=== PATIENT | female | born 1995 | race Caucasian/White ===

== ENCOUNTER 2019-10-20 12:49 | Outpatient (CLI) | payer OTHER, SELFPAY ==
--- NOTE | 2019-10-20 12:53 | ECG_ITS ---
Measurements Intervals [place] Rate: 81 P: 58 [place]: 177 QRS: 32 QRSD: 95 T: 52 QT: 363 QTc: 424 Interpretive Statements SINUS RHYTHM DELAYED PRECORDIAL R/S TRANSITION BORDERLINE ECG Electronically Signed On 10-20-2019 13:44:56 CDT by Vince Riley D.O.
[2019-10-20 13:17] LABS: Hematocrit 43.9 % (37.0-47.0); Hemoglobin 14.5 g/dL (12.0-15.0)
== END 2019-10-20 12:50 | disposition home or self-care (01) ==
LOC: ANHSURGERY 12:53
PROVIDERS: Anesthesiology; PCP Family Medicine; Visit Provider Surgery Plastic and Reconstructive Surgery
DX: Z41.1 Encounter for cosmetic surgery (principal); R94.31 Abnormal electrocardiogram [ECG] [EKG]
CPT/HCPCS: 36415; 85014; 85018; 93005

== ENCOUNTER 2019-10-27 01:04 | Outpatient (CLI) | payer OTHER, SELFPAY ==
[2019-10-27 19:25] LABS: SARS-CoV-2 RNA PCR Negative
== END 2019-10-27 01:05 | disposition home or self-care (01) ==
LOC: ANHCOVIDDT 01:04
PROVIDERS: PCP Family Medicine; Visit Provider Surgery Plastic and Reconstructive Surgery
DX: Z01.818 Encounter for other preprocedural examination (principal); Z11.59 Encounter for screening for other viral diseases
CPT/HCPCS: 87635; C9803; U0003

== ENCOUNTER 2019-10-29 01:32 | Day surgery (SDC) | payer OTHER, SELFPAY ==
[2019-10-16 09:41] VITALS: BMI 26.6
[2019-10-29] VITALS (15 sets, daily range): BP systolic 109–146; BP diastolic 52–87; PULSE 59–111; RESP 10–20; TEMP 36.4–36.9; O2SAT 96–100
[2019-10-29 08:28] LABS: Urine Cotinine NEGATIVE
--- NOTE | 2019-10-29 08:36 | WPDANESEPPF ---
Anes - Initial Pre Proc Eval Procedure: Operation Date: 10/29/19 10:00 Proposed Procedures p Abdominoplasty, - Kevin Lang MD s Abdominal Liposuction - Kevin Lang MD Date/Time: 10/29/19 08:36 Surgeon: Kevin Lang MD Pre Op Diagnosis: Skin Laxity Patient Data Age: 24 Gender: F Height: 1.68 m Weight: 74.84 kg Allergies Allergy/AdvReac Type Severity Reaction Status Date / Time lactose Allergy Unknown HIVES, GI Verified 10/16/19 09:42 UPSET Home Medications Medication Instructions Recorded Confirmed Type Collagen Powder 1 scoop/day PO DAILY 10/16/19 10/16/19 History Vitamin C 1 tablet PO DAILY 10/16/19 10/16/19 History carisoprodol 350 mg tablet 350 mg PO TID PRN #21 tablet 10/16/19 10/16/19 Rx cyanocobalamin (vitamin B-12) 1,000 mcg PO DAILY 10/16/19 10/16/19 History [Vitamin B-12] oxycodone-acetaminophen 5 mg-325 1 tablet PO Q6H PRN #15 tablet 10/16/19 10/16/19 Rx mg tablet Laboratory Tests 10/29/19 08:11 Cotinine Negative Patient hx anesthesia problems: none Family hx anesthesia problems: none PMFSH Past Medical History Medical History (Updated 10/29/19 @ 08:38 by Van Butler MD) Anxiety Depression Eczema Post traumatic stress disorder Social History Social History (System 10/13/19 @ 12:05 by Selin Martinez) Years smoked: 2 Smoking status: Never smoker Tobacco type: cigarettes Second hand tobacco smoke exposure: No Additional smoking assessment comments: QUIT 6 YEARS AGO Alcohol intake: current Drinks per week: 2 Substance use: current Substance use type: marijuana Last use: 2 WEEKS AGO Spiritual care concerns: No Anes - Eval Final PreProcedure Day of Procedure 10/29/19 08:36 Patient weight: overweight Heart: regular rate and rhythm Lungs: clear to auscultation and normal air movement Airway: Mallampati scale class II Neurological: alert and oriented Last oral intake: >/= 8 hours ASA classification: II Emergent: no Anesthetic plan: proceed Anesthesia type and monitoring: general LMA and ETT Informed Consent: The patient's anesthetic plan and its attendant risks and benefits were discussed with the patient/family/POA. Questions were solicited and answers provided to the satisfaction of the patient/family/POA.
[2019-10-29] MEDS: LACTATED RINGERS 1,000 ML 30 ML IV CONT ×2 (09:00→13:25)
--- NOTE | 2019-10-29 09:37 | WPDHPUPDATE1 ---
History and Physical Update Update Date/Time: 10/29/19 09:37 History and Physical has been reviewed, including an updated exam of the patient. There are NO changes in the patient's condition. Risks, benefits, and alternatives have been discussed and questions answered. Patient agrees to proceed with procedure.
[2019-10-29] MEDS: ceFAZolin 2 GM/D5W 50 ML 2 GM/50 ML BAG IVPB (09:57)
--- NOTE | 2019-10-29 09:57 | PM.PROC ---
Procedure Note - Detailed Date of procedure: 10/29/19 Pre-op diagnosis: Skin Laxity Localized adiposity Post-op diagnosis: same Procedure performed: Progressive tension abdominoplasty with suction lipectomy of abdomen Description of procedure: She is here today for abdominoplasty with suction lipectomy. Previously and again today the risks, benefits, alternatives were discussed in extensive detail. I wanted her to be very realistic about the risks involved as well as expectations. We discussed aftercare and what to monitor for. I was very upfront about the risks of wound breakdown leading to loss of skin, open wounds, and need for additional procedures with permanent abdominal deformity. We discussed DVT/PE risks and management. Made sure answered all of her questions to her satisfaction today and consent was obtained. She was marked in the preoperative holding area with their verification. The patient was taken to the operating room placed supine on the operating table. Anesthesia was provided by anesthesiology. A mayberry catheter was started. She was prepped and draped in a standard sterile fashion. A surgical time-out was taken. Suction lipectomy was completed using S.A.F.E. technique with 4mm basket cannula. This was completed to a rolling pinch test. I placed the patient in a flexed position to verify the upper and lower markings would reach. I then placed her supine. A thorough abdominal examination was completed. Stab incisions were made and used tumescent solution. A 10 blade was used to make the upper incision. I continued dissection down to the level of fascia. Elevated just what was necessary for repair of the diastasis and discontinuous undermining otherwise. I then again flexed the bed to verify the upper skin flap would reach the lower markings without tension. Once verified I placed her supine once again and a 10 blade used to make the lower incision. I elevated up to level the umbilicus and left the umbilicus intact on a well-vascularized stalk. The intervening tissue was removed. A 2 mm blunt cannula and Exparel which was mixed 20 cc in 100 cc for a total volume of 120 cc I injected deep to the fascia bilaterally as well as along the incision lines. I plicated the diastasis recti using 0 PDO stratafix barbed suture. This was in 2 separate layers using 2 separate sutures as well. I repaired around the umbilicus leaving plenty of room for well-vascularized stalk of the umbilicus with 2-0 PDS. The patient was flexed and starting from superior to inferior began plication using 2-0 Vicryl to obliterate all space in a standard progressive tension fashion. At the umbilicus I marked out the location of the skin and inset this with 3-0 Monocryl and 4-0 nylon. I continued the remainder of the plication using 2-0 Vicryl until I reached my lower planned scar line. I trimmed any excess skin of the upper flap making sure this was a tension-free closure. I then approximated using a 3 point suture with 2-0 Vicryl followed by 3-0 stratafix ,running subcuticular 4-0 Monocryl, and tissue glue. Fluffs and an abdominal binder were placed. The patient was transferred to the bed in a flexed position. Awoken and taken to the PACU without difficulty. All instrument and sponge counts were correct at the end of the case. Anesthesia: GLMA Surgeon: Kevin Lang MD Estimated blood loss (mL): 30 Urine output (mL): 300 Drains: No Packing: No Pathology: none sent Complications: No immediate complications Condition: stable Disposition: PACU Findings: Aspirate volume 1600 cc Tissue removed 1800 grams.
--- NOTE | 2019-10-29 13:00 | SUR.OPER ---
EBL:50cc
--- NOTE | 2019-10-29 13:00 | SUR.OPER ---
URINE:300cc
--- NOTE | 2019-10-29 15:10 | PC.NURSE ---
PT arrived on unit via bed and moved to room 277. PT alert and awake and talkative. PT unaccompanied at this time. PT oriented to room and surrounding area. PT introductions made and plan of care discussed per post op manager copy surgery, pain management, daily care activities and positioning. PT verbalized understanding of such care.
[2019-10-29] MEDS: MORPHINE SULFATE 2 MG/ML INJ IV PUSH (15:41)
[2019-10-29] MEDS: LACTATED RINGERS 1,000 ML 125 ML IV CONT (16:21)
[2019-10-29] MEDS: oxyCODONE/ACETAMINOPHEN 5-325 MG TABLET PO ×2 (16:40→22:57)
[2019-10-29] MEDS: DOCUSATE SODIUM 100 MG CAPSULE PO (21:02)
[2019-10-30 01:00] VITALS: BP 107/54; PULSE 92; RESP 20; TEMP 36.9
--- NOTE | 2019-10-30 03:42 | PC.NURSE ---
10/29/19 @ 2100. Attempted to get patient up to stand and walk to chair. She is unable to do this, tearful, states she cannot get up. She would like to try again after next pain medication dose. Gómez Brennan RN
--- NOTE | 2019-10-30 03:44 | PC.NURSE ---
10/30/19 0100 Attempt to get patient up again, she did get to side of bed to sit but unable to move any further, patient is too scared of her incision pain. Will attempt again in am. MARGIE avilez and SCD's remain on. Carine HAWK
[2019-10-30 05:00] VITALS: BP 110/62; PULSE 96; RESP 18; TEMP 36.7; O2SAT 98
[2019-10-30] MEDS: oxyCODONE/ACETAMINOPHEN 5-325 MG TABLET PO ×2 (05:14→11:28)
[2019-10-30 07:00] VITALS: BP 108/56; PULSE 96; RESP 18; TEMP 38.2; O2SAT 97
--- NOTE | 2019-10-30 07:24 | WPDPN ---
Progress Note: A&P Assessment and Plan (1) Encounter for cosmetic surgery: Code(s): Z41.1 - Encounter for cosmetic surgery Status: Acute Assessment and Plan: Doing well after abdominoplasty/suction lipectomy. Will plan for discharge home when: Ambulating Pain controlled Tolerating diet We did provide incentive spirometer due to low-grade fever. Will re-evaluate prior to discharge. Today I spent 20 minutes discussing discharge planning. What monitor for. She will call with any questions or concerns. (2) Anxiety: Code(s): F41.9 - Anxiety disorder, unspecified Status: Acute (3) Depression: Code(s): F32.9 - Major depressive disorder, single episode, unspecified Status: Acute (4) Post traumatic stress disorder: Code(s): F43.10 - Post-traumatic stress disorder, unspecified Status: Acute (5) Eczema: Code(s): L30.9 - Dermatitis, unspecified Status: Acute Time Spent With Patient Time with patient: 15 - 25 minutes Review of Systems Review of Systems: All systems reviewed & are unremarkable except as noted in HPI and below Exam Narrative: Exam Narrative: Abdomen healing well. There is no signs of infection. No hematoma. No seroma. Const: General: comfortable, no acute distress, alert and awake; No acute distress Orientation/consciousness: oriented to person HENMT: Head: normal to inspection Ears: external ears normal General nose exam: Normal external nose present Face and sinus: normal facial exam Eyes: General: appearance normal, both eyes and all related structures Periorbital: periorbital findings normal Eyelids: eyelids normal Conjunctivae: conjunctivae normal Neck: Neck: normal visual inspection Chest: Chest palpation & inspection: normal inspection of the chest Resp: Effort & Inspection: normal respiratory effort and able to speak in complete sentences GI: Inspection: normal to inspection Neuro: General: oriented to person Extrem: Other: No calf tenderness. Negative Homans. SCDs in place. Psych: Appearance: grossly normal Mental Status: mental status grossly normal Objective Data Vital Signs Vital Signs: Vital Signs - 24 hr 10/29/19 13:24 10/29/19 13:40 10/29/19 13:55 Temperature 36.4 C Pulse Rate 83 62 68 Respiratory Rate 14 10 L 10 L Blood Pressure 123/75 129/85 117/79 Pulse Oximetry 100 100 99 10/29/19 14:10 10/29/19 14:25 10/29/19 14:40 Temperature Pulse Rate 61 59 L 75 Respiratory Rate 10 L 10 L 12 Blood Pressure 123/79 117/75 125/78 Pulse Oximetry 99 98 99 10/29/19 15:10 10/29/19 15:20 10/29/19 15:30 Temperature 36.6 C Pulse Rate 82 82 86 Respiratory Rate 18 18 18 Blood Pressure 124/78 118/87 Pulse Oximetry 100 100 99 10/29/19 15:45 10/29/19 16:00 10/29/19 16:30 Temperature Pulse Rate 88 90 78 Respiratory Rate 18 18 20 Blood Pressure 115/74 130/80 122/68 Pulse Oximetry 100 100 100 10/29/19 17:00 10/29/19 18:00 10/29/19 20:21 Temperature 36.9 C Pulse Rate 78 111 H 85 Respiratory Rate 20 20 18 Blood Pressure 146/84 H 109/52 L 121/63 Pulse Oximetry 100 99 96 10/30/19 01:00 10/30/19 05:00 Temperature 36.9 C 36.7 C Pulse Rate 92 96 Respiratory Rate 20 18 Blood Pressure 107/54 L 110/62 Pulse Oximetry 98 Intake/Output Intake/Output: Intake & Output 10/27/19 10/28/19 10/29/19 10/30/19 23:59 23:59 23:59 23:59 Intake Total 1120 1282 Output Total 1440 1550 Balance -320 -011 Meds/Results Medications: Active Medications Generic Name Dose Route Start Last Admin Trade Name Freq PRN Reason Stop Dose Admin Docusate Sodium 100 mg 10/29/19 21:00 10/29/19 21:02 Colace Capsule PO 100 mg Q12HR CIRO Administration Enoxaparin Sodium 40 mg 10/30/19 09:00 Lovenox SUB-Q DAILY CIRO Morphine Sulfate 2 mg 10/29/19 13:39 10/29/19 15:41 Morphine Sulfate Inj IV PUSH 2 mg Q2H PRN Administration Pain Ondansetron
--- NOTE | 2019-10-30 07:29 | PM.DS ---
DS: Admitting Diagnosis Admitting Diagnosis Admitting Diagnosis: Encounter for cosmetic surgery DS: Discharge Diagnosis Discharge Diagnosis (1) Encounter for cosmetic surgery: Code(s): Z41.1 - Encounter for cosmetic surgery Status: Acute Assessment and Plan: s/p Progressive tension abdominoplasty with suction lipectomy of abdomen (2) Anxiety: Code(s): F41.9 - Anxiety disorder, unspecified Status: Acute (3) Depression: Code(s): F32.9 - Major depressive disorder, single episode, unspecified Status: Acute (4) Post traumatic stress disorder: Code(s): F43.10 - Post-traumatic stress disorder, unspecified Status: Acute (5) Eczema: Code(s): L30.9 - Dermatitis, unspecified Status: Acute DS: Summary Time Spent with Patient Time attestation: Total time spent providing and/or coordinating discharge services: 20 minutes Exam Narrative: Exam Narrative: Abdomen healing well. There is no signs of infection. No hematoma. No seroma. Const: General: comfortable, no acute distress, alert and awake; No acute distress Orientation/consciousness: oriented to person HENMT: Head: normal to inspection Ears: external ears normal General nose exam: Normal external nose present Face and sinus: normal facial exam Eyes: General: appearance normal, both eyes and all related structures Periorbital: periorbital findings normal Eyelids: eyelids normal Conjunctivae: conjunctivae normal Neck: Neck: normal visual inspection Chest: Chest palpation & inspection: normal inspection of the chest Resp: Effort & Inspection: normal respiratory effort and able to speak in complete sentences GI: Inspection: normal to inspection Neuro: General: oriented to person Extrem: Other: No calf tenderness. Negative Homans. SCDs in place. Psych: Appearance: grossly normal Mental Status: mental status grossly normal DS: Data Data Completed and Pending Labs on day of discharge: Labs from last 24 hours 10/29/19 08:11 Cotinine Negative Discharge Plan Discharge Patient Disposition: Home, Self-Care Discharge Instructions: POST OPERATIVE DISCHARGE INSTRUCTIONS FOR Abdominoplasty / Liposuction KEVIN LANG M.D. [facility] [address] [place] [address] [address] for 24 hours after anesthesia and while you are taking pain medication. Take all prescribed medication as directed Diet as tolerated. No lifting or activity that raises blood pressure for 48 hours. Regular walking / ambulation. No showering until directed to. Once you shower do not take pain medication before showering as the combination of medication and heat may cause you to feel dizzy or pass out. No pools or tubs for 2 weeks. Call with any questions or concerns. No lifting more than 20 pounds or straining for 6 weeks. Slowly stand up straight as tolerated. Abdominal binder 23 hour per day. Dressing Care: May shower. If you have any questions or concerns, please call the office . If it is after hours you will be directed to the cushion installer exchange. Shortness of breath, chest pain, or other medical emergency dial 911 / proceed to the Emergency Room. Follow-up/Referrals: Kevin Lang MD [Physician] - 1 Week Discharge Medications: Continued carisoprodol [Soma] 350 mg tablet 350 mg PO TID PRN (Reason: muscle pain) Qty: 21 RF: 0 oxycodone-acetaminophen [Percocet] 5-325 mg tablet 1 tablet PO Q6H PRN (Reason: pain) Qty: 15 RF: 0 Vitamin B-12 1,000 mcg/mL Drops 1,000 mcg PO DAILY RF: 0 Collagen Powder 1 scoop/day PO DAILY RF: 0 Vitamin C 1 tablet PO DAILY RF: 0
[2019-10-30] MEDS: DOCUSATE SODIUM 100 MG CAPSULE PO (08:17)
[2019-10-30] MEDS: IBUPROFEN 600 MG TABLET PO (08:17)
[2019-10-30] MEDS: ENOXAPARIN 40 MG/0.4 ML SYRINGE SUB-Q (08:20)
[2019-10-30 09:30] VITALS: TEMP 37
== END 2019-10-30 14:30 | disposition home or self-care (01) ==
LOC: ANHSURGERY 13:44 → ANHOB2 14:57
PROVIDERS: Visit Provider Surgery Plastic and Reconstructive Surgery
PROC: (CPT 15830; principal; 2019-10-29 10:00)
PROC: (CPT 15877; 2019-10-29 10:00)
DX: Z41.1 Encounter for cosmetic surgery (principal); L57.4 Cutis laxa senilis; E65 Localized adiposity; Z87.891 Personal history of nicotine dependence; F12.90 Cannabis use, unspecified, uncomplicated
CPT/HCPCS: 15830; 15847; 15877; 36415; 80307; 99199; A9270; C9290; J0171; J0330; J0690; J1100; J1170; J1650; J2250; J2270; J2370; J2405; J2704; J3010; J7120